=== PATIENT | male | born 1965 | race Caucasian/White ===

== ENCOUNTER 2017-01-01 10:48 | Day surgery (SDC) | payer MEDICAID ==
[~2017-01-01 10:48] MED LIST: ALEVE220 MG PO; ASPIRIN81 M1 PO; BACTRIM DS TAB1 EAC2 PO; BACTRIM DS1 TA1 PO; GLUCOPHAGE1000 M1 PO; GLUCOPHAGE500 M3 PO; GLUCOPHAGE850 MG PO; GLUCOTROL10 M1 PO; KEFLEX500 M4 PO; LASIX40 M1 PO; LIPITOR20 M1 PO; LISINOPRIL5 MG PO; NEURONTIN300 M1 PO; NORVASC10 M2 PO; OXYCODONE-ACET1 EAC3 PO; OXYCODONE/APAP PO; PERCOCET 5-3251 EACH PO; PRINIVIL20 M1 PO; VITAMIN D31000 UNI3 PO
[2017-01-01 12:05] LABS: ANION GAP 12 mmol/L (0-20); BLOOD UREA NITROGEN 33 mg/dl (6-24); CALCIUM 8.6 mg/dl (8.5-10.5); CARBON DIOXIDE-VENOUS 27 mmol/L (22-32); CHLORIDE 103 mmol/l (96-110); CREATININE 1.28 mg/dl (0.60-1.30); GLUCOSE 264 mg/dL (70-110); POTASSIUM 5.4 mmol/L (3.7-5.1); SODIUM 137 mmol/L (135-145); eGFR VALUE FOR BLACK 76 mL/Min
[2017-03-19] MEDS ORDERED: INVOKANA100 MG PO (14:21)
[2017-03-19] MEDS ORDERED: FEOSOL325 M1 PO (14:21)
[2017-03-24] MEDS ORDERED: ZYRTEC10 M7 PO (06:54)
[2017-05-21] MEDS ORDERED: VIBRAMYCIN100 M1 PO (13:02)
== END 2017-01-01 18:00 ==
LOC: SRG 10:48 → SHSB 10:52 → ORW 13:24 → PACU 15:09 → SHSB 15:30
PROVIDERS: Anesthesiology
PROC: 0JQ70ZZ Repair Back Subcutaneous Tissue and Fascia, Open Approach (ICD-10-PCS; principal; 2017-01-01)
PROC: 0JB70ZZ Excision of Back Subcutaneous Tissue and Fascia, Open Approach (ICD-10-PCS; 2017-01-01)
DX: L02.212 Cutaneous abscess of back [any part, except buttock and flank] (principal); I10 Essential (primary) hypertension; E66.01 Morbid (severe) obesity due to excess calories; M19.049 Primary osteoarthritis, unspecified hand; E11.9 Type 2 diabetes mellitus without complications; H26.9 Unspecified cataract; I27.2 Other secondary pulmonary hypertension; Z68.41 Body mass index [BMI] 40.0-44.9, adult; Z79.82 Long term (current) use of aspirin; Z79.84 Long term (current) use of oral hypoglycemic drugs; Z79.899 Other long term (current) drug therapy; Z91.048 Other nonmedicinal substance allergy status; Z87.891 Personal history of nicotine dependence; Z98.890 Other specified postprocedural states
CPT/HCPCS: J1815; J2175; J3260; J3370